=== PATIENT | female | born 1980 | race Caucasian/White ===

== ENCOUNTER 2016-12-30 16:55 | Emergency (ER) | payer OTHER ==
[~2016-12-30] VITALS: Ht 157.4 cm; Wt 90.7 kg
[~2016-12-30 16:55] MED LIST: ALBUTEROL0.09 MG/A2 INH; ALDACTONE25 MG PO; ANAPROX DS550 MG PO; ATARAX,VISTARIL50 MG PO; ATARAX25 MG PO; BACTRIM DS 8001 TA1 PO; CIPROFLOXACIN500 MG PO; CORDROL20 MG PO; DAYPRO600 M1 PO; DONNATAL1 TAB PO; DOXYCYCLINE MO100 MG PO; HYDROCODONE BIT1 T11 PO; KEFLEX500 MG PO; LIDEX 0.05% CRE15 GM T; MEDROL DOSEPAK4 MG PO; MOTRIN800 MG PO; NKHM; NORCO 5-325 TA1 EACH PO; PERCOCET 325 MG1 TA6 PO; PREDNISONE10 MG PO; PREDNISONE20 MG PO; PRILOSEC20 M1 PO; PRILOSEC20 MG PO; PROAIR HFA8.5 GM IH; TRAMADOL HCL50 MG PO; ULTRAM50 MG PO; VICODIN 5/500 505 MG PO; VITAMIN C PO; VITAMIN D-32000 UNI1 PO; ZANTAC150 MG PO; ZOFRAN4 MG PO; [UNRECOGNIZED DRUG - OTHER] PO
[2016-12-30 17:04] VITALS: BP 145/86
[2016-12-30 17:36] LABS: BASO % 0.3 % (0.0-1.0); EOS % 0.2 % (1.0-4.0); HEMATOCRIT 41.4 % (37.0-47.0); LYMPH % 25.5 % (27.0-41.0); MEAN CELL VOLUME 91.2 fl (81.0-99.0); MEAN CORPUSCULAR HGB 30.8 pg (27.0-31.0); MEAN CORPUSCULAR HGB CONC 33.8 g/dl (33.0-37.0); MEAN PLATELET VOLUME 10.4 fl (9.6-12.3); MONO # 0.6 10*3/uL (0.1-1.0); MONO % 4.8 % (3.0-9.0); NEUT % 68.8 % (47.0-73.0); PLATELET COUNT AUTOMATED 210 10*3/uL (130-400); RED BLOOD COUNT 4.54 10*6/uL (4.10-5.10); RED CELL DISTRI WIDTH 12.8 % (0-14.5); WHITE BLOOD COUNT 11.6 10*3/uL (4.8-10.8)
[2016-12-30 17:50] LABS: ALBUMIN 3.5 gm/dl (3.1-4.5); ALKALINE PHOSPHATASE 86 U/L (45-117); BUN 7 mg/dl (7-24); CHLORIDE 101 mmol/L (98-107); POTASSIUM 3.3 mmol/L (3.5-5.1); SGOT/AST 49 IU/L (3-35); SGPT/ALT 104 U/L (12-78); SODIUM 137 mmol/L (136-145); TOTAL PROTEIN 7.9 gm/dL (6.4-8.2)
[2016-12-30] MEDS ORDERED: OMNICEF300 MG PO (20:34)
== END 2016-12-30 21:47 | disposition home or self-care (01) ==
LOC: ED 16:55
PROVIDERS: Physician Assistant
DX: J02.0 Streptococcal pharyngitis (principal); J03.90 Acute tonsillitis, unspecified; F17.200 Nicotine dependence, unspecified, uncomplicated; Z79.899 Other long term (current) drug therapy

== ENCOUNTER 2017-06-02 10:37 | Emergency (ER) | payer OTHER ==
[~2017-06-02] VITALS: Ht 157.4 cm; Wt 113.4 kg
[~2017-06-02 10:37] MED LIST changes: +OMNICEF300 MG PO
[2017-06-02] MEDS ORDERED: CEPHALEXIN500 M1 PO (11:23)
[2017-06-02] MEDS ORDERED: SEPTDS PO (11:23)
[2017-06-02] MEDS ORDERED: Motrin,Rufen800 MG PO (11:23)
[2017-06-02 11:28] VITALS: BP 130/82
== END 2017-06-02 11:58 | disposition home or self-care (01) ==
LOC: ED 10:37
DX: L02.211 Cutaneous abscess of abdominal wall (principal); F17.200 Nicotine dependence, unspecified, uncomplicated

== ENCOUNTER 2017-07-26 11:00 | Emergency (ER) | payer OTHER ==
[~2017-07-26] VITALS: Ht 157.4 cm; Wt 111.1 kg
[~2017-07-26 11:00] MED LIST changes: +CEPHALEXIN500 M1 PO; +Motrin,Rufen800 MG PO; +SEPTDS PO
[2017-07-26 11:04] VITALS: BP 106/60
[2017-07-26] MEDS ORDERED: CEPHALEXIN500 M1 PO (11:28)
== END 2017-07-26 11:40 | disposition home or self-care (01) ==
LOC: ED 11:00
DX: L03.032 Cellulitis of left toe (principal); F17.200 Nicotine dependence, unspecified, uncomplicated; Z98.51 Tubal ligation status; Z98.890 Other specified postprocedural states; Z79.899 Other long term (current) drug therapy

== ENCOUNTER 2017-09-09 04:27 | Emergency (ER) | payer OTHER ==
[~2017-09-09] VITALS: Ht 157.4 cm; Wt 111.1 kg
[2017-09-09 04:27] VITALS: BP 134/65
[2017-09-09] MEDS ORDERED: CYCLOBENZAPRINE10 MG PO (05:06)
[2017-09-09] MEDS ORDERED: NAPROSYN500 MG PO (05:06)
== END 2017-09-09 05:15 | disposition home or self-care (01) ==
LOC: ED 04:27
DX: M54.6 Pain in thoracic spine (principal); M54.9 Dorsalgia, unspecified; R07.81 Pleurodynia; F17.200 Nicotine dependence, unspecified, uncomplicated; Z90.49 Acquired absence of other specified parts of digestive tract; Z98.51 Tubal ligation status

== ENCOUNTER → 2018-01-10 | Outpatient (CLI) | payer OTHER ==
[~2018-01-10] MED LIST changes: +CYCLOBENZAPRINE10 MG PO; +CYCLOBENZAPRINE5 M3 PO; +NAPROSYN500 MG PO
== END | disposition home or self-care (01) ==
LOC: ORTHO 00:33
DX: M25.512 Pain in left shoulder (principal); R07.9 Chest pain, unspecified

== ENCOUNTER → 2018-01-17 | Outpatient (CLI) | payer OTHER | END | disposition home or self-care (01) | LOC: MRI 11:00 | DX: M75.52 Bursitis of left shoulder (principal) ==

== ENCOUNTER 2018-04-07 10:24 | Emergency (ER) | payer OTHER ==
[~2018-04-07] VITALS: Ht 157.4 cm; Wt 113.4 kg
[~2018-04-07 10:24] MED LIST changes: -CYCLOBENZAPRINE5 M3 PO
[2018-04-07 10:28] VITALS: BP 111/46
[2018-04-07] MEDS ORDERED: CYCLOBENZAPRINE5 M3 PO (13:57)
[2018-04-07] MEDS ORDERED: Motrin,Rufen800 MG PO (13:57)
[2018-04-07] MEDS ORDERED: PREDNISONE10 MG PO (13:57)
== END 2018-04-07 14:28 | disposition home or self-care (01) ==
LOC: ED 10:24
DX: M79.602 Pain in left arm (principal); M25.532 Pain in left wrist; M25.512 Pain in left shoulder; R20.0 Anesthesia of skin

== ENCOUNTER 2018-08-18 11:04 | Emergency (ER) | payer OTHER ==
[~2018-08-18] VITALS: Ht 157.4 cm; Wt 111.1 kg
[~2018-08-18 11:04] MED LIST changes: +CYCLOBENZAPRINE5 M3 PO
[2018-08-18 11:06] VITALS: BP 127/59
[2018-08-18] MEDS ORDERED: PREDNISONE50 MG PO (12:29)
[2018-08-18] MEDS ORDERED: ROBITUSSIN DM 105 ML PO (12:29)
[2018-08-18] MEDS ORDERED: AMOXICILLIN500 M2 PO (12:29)
== END 2018-08-18 12:31 | disposition home or self-care (01) ==
LOC: ED 11:04
DX: J20.9 Acute bronchitis, unspecified (principal); F17.200 Nicotine dependence, unspecified, uncomplicated

== ENCOUNTER 2018-11-04 09:01 | Emergency (ER) | payer OTHER ==
[~2018-11-04] VITALS: Wt 115.7 kg
[~2018-11-04 09:01] MED LIST changes: +AMOXICILLIN500 M2 PO; +PREDNISONE50 MG PO; +ROBITUSSIN DM 105 ML PO
[2018-11-04 09:02] VITALS: BP 144/83
== END 2018-11-04 10:24 | disposition home or self-care (01) ==
LOC: ED 09:01
DX: M25.572 Pain in left ankle and joints of left foot (principal); M79.672 Pain in left foot; Z79.2 Long term (current) use of antibiotics; Z79.899 Other long term (current) drug therapy; Z90.49 Acquired absence of other specified parts of digestive tract

== ENCOUNTER 2019-10-18 14:13 | Emergency (ER) | payer OTHER ==
[~2019-10-18] VITALS: Ht 157.4 cm; Wt 117.9 kg
[2019-10-18 14:31] VITALS: BP 140/86
[2019-10-18 15:02] LABS: BASO # 0.1 10*3/uL (0.0-0.1); BASO % 0.7 % (0.0-1.0); EOS # 0.1 10*3/uL (0.0-0.4); HEMATOCRIT 43.9 % (37.0-47.0); LYMPH # 3.1 10*3/uL (1.3-4.4); LYMPH % 44.6 % (27.0-41.0); MEAN CORPUSCULAR HGB 30.2 pg (27.0-31.0); MEAN CORPUSCULAR HGB CONC 32.8 g/dl (33.0-37.0); MEAN PLATELET VOLUME 10.8 fl (9.6-12.3); MONO # 0.4 10*3/uL (0.1-1.0); MONO % 5.3 % (3.0-9.0); NEUT # 3.4 10*3/uL (2.3-7.9); NEUT % 48.1 % (47.0-73.0); PLATELET COUNT AUTOMATED 219 10*3/uL (130-400); RED BLOOD COUNT 4.77 10*6/uL (4.10-5.10)
[2019-10-18 15:20] LABS: ALBUMIN 3.6 gm/dl (3.1-4.5); ALKALINE PHOSPHATASE 54 U/L (45-117); BUN 11 mg/dl (7-24); CHLORIDE 107 mmol/L (98-107); CREATININE 0.77 mg/dL (0.55-1.02); POTASSIUM 3.7 mmol/L (3.5-5.1); SGOT/AST 24 IU/L (3-35); SGPT/ALT 45 U/L (12-78); SODIUM 137 mmol/L (136-145); TOTAL PROTEIN 7.1 gm/dL (6.4-8.2)
[2019-10-18 15:38] LABS: BILIRUBIN NEGATIVE (NEGATIVE); BLOOD NEGATIVE (NEGATIVE); CLARITY SL CLOUDY (CLEAR); COLOR STRAW (YELLOW); GLUCOSE NEGATIVE (NEGATIVE); KETONE NEGATIVE (NEGATIVE); LEUKO ESTERASE NEGATIVE (NEGATIVE); NITRITE NEGATIVE (NEGATIVE); PH 7.5 (5.0-9.0); UROBILINOGEN 0.2 E.U./dl (0.2-1.0)
[2019-10-18 15:47] LABS: BACTERIA TRACE; WBC 0-2 wbc/hpf (0-5)
== END 2019-10-18 18:10 | disposition home or self-care (01) ==
LOC: ED 14:13
PROVIDERS: Emergency Medicine
DX: R10.11 Right upper quadrant pain (principal); M54.5 Low back pain; R53.1 Weakness; K21.9 Gastro-esophageal reflux disease without esophagitis; J45.909 Unspecified asthma, uncomplicated; Z90.49 Acquired absence of other specified parts of digestive tract

== ENCOUNTER → 2019-11-02 | Outpatient (CLI) | payer OTHER | END | disposition home or self-care (01) | LOC: RESCLI 00:43 | DX: M32.9 Systemic lupus erythematosus, unspecified (principal); R10.11 Right upper quadrant pain; Z71.89 Other specified counseling; Z72.0 Tobacco use; Z71.6 Tobacco abuse counseling; Z79.899 Other long term (current) drug therapy; Z98.890 Other specified postprocedural states; Z90.49 Acquired absence of other specified parts of digestive tract ==

== ENCOUNTER → 2019-11-07 | Outpatient (CLI) | payer OTHER ==
[2019-11-06 11:34] LABS: BILIRUBIN NEGATIVE (NEGATIVE); BLOOD NEGATIVE (NEGATIVE); CLARITY CLEAR (CLEAR); COLOR YELLOW (YELLOW); GLUCOSE NEGATIVE (NEGATIVE); KETONE NEGATIVE (NEGATIVE); LEUKO ESTERASE NEGATIVE (NEGATIVE); NITRITE NEGATIVE (NEGATIVE); SPECIFIC GRAVITY 1.025 (1.005-1.030); UROBILINOGEN 0.2 E.U./dl (0.2-1.0)
[2019-11-06 11:35] LABS: MUCOUS 1+
[2019-11-06 11:39] LABS: BACTERIA TRACE
== END | disposition home or self-care (01) ==
LOC: LAB 11-06 08:59 → US 10:00
PROVIDERS: Internal Medicine
DX: M32.9 Systemic lupus erythematosus, unspecified (principal); K76.0 Fatty (change of) liver, not elsewhere classified; E66.9 Obesity, unspecified; Z72.0 Tobacco use; Z11.1 Encounter for screening for respiratory tuberculosis; Z71.6 Tobacco abuse counseling; Z90.49 Acquired absence of other specified parts of digestive tract; Z98.51 Tubal ligation status

== ENCOUNTER → 2019-12-05 | Outpatient (CLI) | payer OTHER | END | disposition home or self-care (01) | LOC: RESCLI 02:32 | DX: M32.9 Systemic lupus erythematosus, unspecified (principal); E66.01 Morbid (severe) obesity due to excess calories; L65.9 Nonscarring hair loss, unspecified; Z72.0 Tobacco use ==

== ENCOUNTER 2020-06-09 10:25 | Emergency (ER) | payer OTHER ==
[~2020-06-09] VITALS: Wt 108.9 kg
[2020-06-09 10:36] VITALS: BP 137/85
[2020-06-09 11:14] LABS: BILIRUBIN Negative (Negative); BLOOD 3+ (Negative); CLARITY Turbid (Clear); COLOR Orange (Yellow); GLUCOSE Negative (Negative); KETONE Negative (Negative); LEUKO ESTERASE 1+ (Negative); NITRITE Negative (Negative); SPECIFIC GRAVITY 1.025 (1.001-1.030)
[2020-06-09 11:24] LABS: BASO % 0.5 % (0.0-1.0); EOS % 0.5 % (1.0-4.0); LYMPH # 2.8 10*3/uL (1.3-4.4); LYMPH % 42.2 % (27.0-41.0); MEAN CELL VOLUME 92.2 fl (81.0-99.0); MEAN CORPUSCULAR HGB 29.6 pg (27.0-31.0); MEAN PLATELET VOLUME 10.6 fl (9.6-12.3); MONO # 0.3 10*3/uL (0.1-1.0); MONO % 4.9 % (3.0-9.0); NEUT # 3.4 10*3/uL (2.3-7.9); NEUT % 51.6 % (47.0-73.0); PLATELET COUNT AUTOMATED 256 10*3/uL (130-400); RED BLOOD COUNT 4.77 10*6/uL (4.10-5.10); RED CELL DISTRI WIDTH 12.9 % (0-14.5); WHITE BLOOD COUNT 6.5 10*3/uL (4.8-10.8)
[2020-06-09 11:33] LABS: RBC TNTC rbc/hpf (0-2)
[2020-06-09 11:35] LABS: BACTERIA 2+
[2020-06-09 11:39] LABS: ALBUMIN 3.3 gm/dl (3.1-4.5); ALKALINE PHOSPHATASE 71 U/L (45-117); BUN 10 mg/dl (7-24); CHLORIDE 108 mmol/L (98-107); CREATININE 0.76 mg/dL (0.55-1.02); POTASSIUM 4.1 mmol/L (3.5-5.1); SGOT/AST 18 IU/L (3-35); SGPT/ALT 34 U/L (12-78); SODIUM 139 mmol/L (136-145); TOTAL PROTEIN 7.4 gm/dL (6.4-8.2)
[2020-06-09] MEDS ORDERED: CYCLOBENZAPRINE10 MG PO (11:49)
[2020-06-09] MEDS ORDERED: NAPROSYN500 MG PO (11:49)
[2020-06-09] MEDS ORDERED: TYLENOL325 M1 PO (11:49)
== END 2020-06-09 11:53 | disposition home or self-care (01) ==
LOC: ED 10:25
PROVIDERS: Emergency Medicine
DX: M54.5 Low back pain (principal); R20.2 Paresthesia of skin; K21.9 Gastro-esophageal reflux disease without esophagitis; J45.909 Unspecified asthma, uncomplicated; Z79.899 Other long term (current) drug therapy; Z98.51 Tubal ligation status; Z90.49 Acquired absence of other specified parts of digestive tract

== ENCOUNTER → 2020-06-13 | Outpatient (CLI) | payer OTHER ==
[~2020-06-13] MED LIST changes: +TYLENOL325 M1 PO
[2020-06-13 15:33] LABS: VITAMIN D, 25-HYDROXY 11.3 ng/mL (30-100)
[2020-06-14 08:07] LABS: RHEUMATOID ARTHRITIS FACTOR 22.1 IU/mL (0.0-13.9)
[2020-06-14 13:06] LABS: ANTI-DSDNA ANTIBODIES <1 IU/mL (0-9); ANTI-RNP ANTIBODIES <0.2 AI (0.0-0.9); ANTICHROMATIN ANTIBODIES <0.2 AI (0.0-0.9); SJOGREN ANTI-SS-A >8.0 AI (0.0-0.9); SJOREN AB, ANTI-SS-B 0.2 AI (0.0-0.9)
[2020-06-15 06:07] LABS: TESTOSTERONE FREE, (DIRECT) 2.9 pg/mL (0.0-4.2)
== END | disposition home or self-care (01) ==
LOC: RESCLI 13:06
PROVIDERS: Internal Medicine; ATTEND Internal Medicine
DX: M51.34 Other intervertebral disc degeneration, thoracic region (principal); M62.830 Muscle spasm of back; M54.9 Dorsalgia, unspecified; R20.2 Paresthesia of skin; L65.9 Nonscarring hair loss, unspecified; K76.0 Fatty (change of) liver, not elsewhere classified; E66.01 Morbid (severe) obesity due to excess calories; F17.200 Nicotine dependence, unspecified, uncomplicated; Z79.899 Other long term (current) drug therapy; Z90.49 Acquired absence of other specified parts of digestive tract; Z98.51 Tubal ligation status; Z98.890 Other specified postprocedural states

== ENCOUNTER → 2020-06-20 | Outpatient (CLI) | payer OTHER ==
[2020-06-20 10:27] LABS: BASO % 0.4 % (0.0-1.0); EOS # 0.1 10*3/uL (0.0-0.4); HEMATOCRIT 44.9 % (37.0-47.0); LYMPH # 2.9 10*3/uL (1.3-4.4); LYMPH % 36.5 % (27.0-41.0); MEAN CELL VOLUME 90.9 fl (81.0-99.0); MEAN PLATELET VOLUME 10.3 fl (9.6-12.3); MONO # 0.5 10*3/uL (0.1-1.0); MONO % 6.3 % (3.0-9.0); NEUT # 4.4 10*3/uL (2.3-7.9); NEUT % 55.5 % (47.0-73.0); PLATELET COUNT AUTOMATED 265 10*3/uL (130-400); RED BLOOD COUNT 4.94 10*6/uL (4.10-5.10); RED CELL DISTRI WIDTH 13.1 % (0-14.5); WHITE BLOOD COUNT 7.8 10*3/uL (4.8-10.8)
[2020-06-20 10:29] LABS: BILIRUBIN Negative (Negative); BLOOD Negative (Negative); CLARITY Clear (Clear); COLOR Yellow (Yellow); GLUCOSE Negative (Negative); KETONE Negative (Negative); LEUKO ESTERASE Negative (Negative); NITRITE Negative (Negative); UROBILINOGEN 0.2 E.U./dl (0.0-1.0)
[2020-06-20 10:56] LABS: ALBUMIN 3.8 gm/dl (3.1-4.5); ALKALINE PHOSPHATASE 79 U/L (45-117); BUN 15 mg/dl (7-24); CHLORIDE 107 mmol/L (98-107); CPK 88 U/L (26-192); CREATININE 0.72 mg/dL (0.55-1.02); POTASSIUM 3.9 mmol/L (3.5-5.1); SGOT/AST 24 IU/L (3-35); SGPT/ALT 66 U/L (12-78); SODIUM 136 mmol/L (136-145)
[2020-06-20 11:10] LABS: EPITHELIAL CELLS 0-2; WBC 0-2 wbc/hpf (0-5)
[2020-06-21 05:06] LABS: COMPLEMENT C4 22 mg/dL (12-38); HEP B CORE AB, IGM Negative (Negative); HEPATITIS B SURFACE AG Negative (Negative); HEPATITIS C VIRUS ANTIBODY <0.1 s/co (0.0-0.9); RHEUMATOID ARTHRITIS FACTOR 23.2 IU/mL (0.0-13.9)
[2020-06-21 13:06] LABS: ANTI-DSDNA ANTIBODIES <1 IU/mL (0-9); ANTI-RNP ANTIBODIES <0.2 AI (0.0-0.9); SJOGREN ANTI-SS-A >8.0 AI (0.0-0.9); SJOREN AB, ANTI-SS-B 0.2 AI (0.0-0.9)
[2020-06-21 16:08] LABS: ANTICARDIOLIPIN AB, IGG, QN <9 GPL U/mL (0-14); ANTICARDIOLIPIN AB, IGM, QN <9 MPL U/mL (0-12); CARDIOLIPIN AB IGA <9 APL U/mL (0-11)
[2020-06-22 00:06] LABS: CCP ANTIBODIES IGG/IGA 6 units (0-19)
== END | disposition home or self-care (01) ==
LOC: LAB 09:57
PROVIDERS: ATTEND Specialist
DX: M76.9 Unspecified enthesopathy, lower limb, excluding foot (principal); M25.50 Pain in unspecified joint; L93.0 Discoid lupus erythematosus

== ENCOUNTER → 2020-07-18 | Outpatient (CLI) | payer OTHER | END | disposition home or self-care (01) | LOC: RESCLI 03:52 | PROVIDERS: ATTEND Internal Medicine | DX: M32.9 Systemic lupus erythematosus, unspecified (principal); E28.2 Polycystic ovarian syndrome; L64.9 Androgenic alopecia, unspecified; E66.01 Morbid (severe) obesity due to excess calories; E55.9 Vitamin D deficiency, unspecified; M54.9 Dorsalgia, unspecified; Z72.0 Tobacco use; Z79.899 Other long term (current) drug therapy ==

== ENCOUNTER → 2020-10-18 | Outpatient (CLI) | payer OTHER | END | disposition home or self-care (01) | LOC: RESCLI 01:42 | PROVIDERS: ATTEND Internal Medicine | DX: R07.81 Pleurodynia (principal); R14.0 Abdominal distension (gaseous); M79.661 Pain in right lower leg; M79.662 Pain in left lower leg; R60.9 Edema, unspecified; M32.9 Systemic lupus erythematosus, unspecified; E66.01 Morbid (severe) obesity due to excess calories; L65.9 Nonscarring hair loss, unspecified; F17.210 Nicotine dependence, cigarettes, uncomplicated; Z79.899 Other long term (current) drug therapy; Z90.49 Acquired absence of other specified parts of digestive tract; Z98.890 Other specified postprocedural states ==

== ENCOUNTER → 2020-10-24 | Outpatient (CLI) | payer OTHER | END | disposition home or self-care (01) | LOC: CT 07:59 | PROVIDERS: ATTEND Internal Medicine | DX: K76.0 Fatty (change of) liver, not elsewhere classified (principal); N83.8 Other noninflammatory disorders of ovary, fallopian tube and broad ligament; R60.0 Localized edema; M79.661 Pain in right lower leg; M79.662 Pain in left lower leg; R07.81 Pleurodynia; Z90.49 Acquired absence of other specified parts of digestive tract ==

== ENCOUNTER → 2020-11-06 | Outpatient (CLI) | payer OTHER | END | disposition home or self-care (01) | LOC: RESCLI 00:43 | PROVIDERS: ATTEND Student in an Organized Health Care Education/Training Program | DX: E55.9 Vitamin D deficiency, unspecified (principal); K76.0 Fatty (change of) liver, not elsewhere classified; R73.03 Prediabetes; M32.9 Systemic lupus erythematosus, unspecified; F32.9 Major depressive disorder, single episode, unspecified; R60.9 Edema, unspecified; F17.200 Nicotine dependence, unspecified, uncomplicated; Z79.899 Other long term (current) drug therapy; Z90.49 Acquired absence of other specified parts of digestive tract; Z98.890 Other specified postprocedural states ==

== ENCOUNTER → 2020-11-07 | Outpatient (CLI) | payer OTHER ==
[2020-11-07 10:37] LABS: CHOLESTEROL 183 mg/dL (<200); LDL CHOLESTEROL 111 mg/dL (9-159); TRIGLYCERIDES 126 mg/dl (<150)
== END | disposition home or self-care (01) ==
LOC: LAB 09:57
PROVIDERS: ATTEND Internal Medicine
DX: K76.0 Fatty (change of) liver, not elsewhere classified (principal); R73.03 Prediabetes

== ENCOUNTER 2022-12-15 10:03 | Emergency (ER) | payer OTHER ==
[~2022-12-15] VITALS: Wt 117.9 kg
[2022-12-15 10:53] LABS: BASO % 0.4 % (0.0-1.0); EOS % 0.3 % (1.0-4.0); HEMATOCRIT 43.2 % (37.0-47.0); LYMPH # 2.1 10*3/uL (1.3-4.4); MEAN CELL VOLUME 91.5 fl (81.0-99.0); MEAN CORPUSCULAR HGB 30.7 pg (27.0-31.0); MEAN CORPUSCULAR HGB CONC 33.6 g/dl (33.0-37.0); MEAN PLATELET VOLUME 10.6 fl (9.6-12.3); MONO # 0.4 10*3/uL (0.1-1.0); MONO % 5.5 % (3.0-9.0); NEUT # 5.4 10*3/uL (2.3-7.9); NEUT % 67.4 % (47.0-73.0); PLATELET COUNT AUTOMATED 232 10*3/uL (130-400); RED BLOOD COUNT 4.72 10*6/uL (4.10-5.10); WHITE BLOOD COUNT 7.9 10*3/uL (4.8-10.8)
[2022-12-15 11:20] LABS: ALKALINE PHOSPHATASE 79 U/L (46-116); BETA-HCG, QUANT < 3.0 mIU/mL (3-10); BUN 8 mg/dl (9-23); CHLORIDE 107 mmol/L (98-107); LIPASE 33 U/L (12-53); POTASSIUM 3.8 mmol/L (3.4-5.1); SGPT/ALT 34 U/L (10-49); TOTAL PROTEIN 7.6 gm/dL (6.0-8.0)
[2022-12-15 11:25] LABS: BILIRUBIN Negative (Negative); BLOOD Negative (Negative); CLARITY Clear (Clear); COLOR Yellow (Yellow); GLUCOSE Negative (Negative); KETONE Negative (Negative); LEUKO ESTERASE Negative (Negative); NITRITE Negative (Negative)
[2022-12-15 11:50] LABS: BACTERIA TRACE; EPITHELIAL CELLS 0-2; RBC 0-2 rbc/hpf (0-2); WBC 0-2 wbc/hpf (0-5)
[2022-12-15 12:20] VITALS: BP 94/59
[2022-12-15] MEDS ORDERED: ONDANSETRON4 MG SL (14:38)
== END 2022-12-15 14:28 | disposition home or self-care (01) ==
LOC: ED 10:03
PROVIDERS: Emergency Medicine
DX: R11.2 Nausea with vomiting, unspecified (principal); R19.7 Diarrhea, unspecified; Z79.2 Long term (current) use of antibiotics; Z79.899 Other long term (current) drug therapy; Z98.890 Other specified postprocedural states; Z90.49 Acquired absence of other specified parts of digestive tract; Z98.51 Tubal ligation status